=== PATIENT | male | born 1955 ===

== ENCOUNTER 2023-12-10 05:52 | Day surgery (SDC) | payer OTHER ==
[2023-12-10] MEDS ORDERED: DIPHENHYDRAMINE HCL 50 MG/ML VIAL 1ML IV ONE (12:15)
[2023-12-10] MEDS ORDERED: fentaNYL CITRATE 50 MCG/ML AMPUL IV ONE (12:15)
[2023-12-10] MEDS ORDERED: MIDAZOLAM HCL 2 MG/2 ML VIAL IV ONE (12:15)
== END 2023-12-10 12:30 | disposition home or self-care (01) ==
LOC: AMB-ENDOS 05:52 → CIR.AMB 13:30
PROVIDERS: ATTEND Surgery
DX: D12.4 Benign neoplasm of descending colon (principal); K63.5 Polyp of colon; K57.30 Diverticulosis of large intestine without perforation or abscess without bleeding